=== PATIENT | male | born 1940 | race Caucasian/White ===

== ENCOUNTER 2016-12-31 05:05 | Day surgery (SDC) | payer MEDICARE, BC ==
[2016-12-30 09:57] LABS: HEMOGLOBIN 14.6 g/dL (13.5-17.5); MCH 30.2 pg (26.0-34.0); MEAN PLATELET VOLUME 11.5 fL (7.4-10.4); RBC 4.83 10x6/uL (4.20-6.10); WBC 7.6 10x3/uL (4.8-10.8)
[2016-12-30 10:16] LABS: ANION GAP 12.9 mmol/L (8-16); CALCIUM 9.8 mg/dL (8.5-10.1); CARBON DIOXIDE 28.6 mmol/L (21.0-32.0); CREATININE - SERUM 1.2 mg/dL (0.6-1.3); POTASSIUM - SERUM 4.5 mmol/L (3.5-5.1)
[~2016-12-31] VITALS: Ht 175.3 cm; Wt 89.8 kg
[~2016-12-31 05:05] MED LIST: ASPIRIN EC81 M1 PO; CRESTOR20 MG PO; GLUCOPHAGE1000 MG PO; LANTUS INSULIN10 ML SC
[2016-12-31 05:51] VITALS: BP 111/55; Ht 175.3 cm; Wt 89.8 kg
[2016-12-31] MEDS ORDERED: HYDROCODONE-APA1 TAB PO (08:57)
--- NOTE | 2016-12-31 09:35 | NUR ---
IV DC WITH CATHER TIP INTACT
--- NOTE | 2016-12-31 10:06 | NUR ---
0911 STILL C/O PAIN , PAIN LEVEL AT AT 8
--- NOTE | 2017-01-21 12:18 | OP ---
PATIENT NAME: MADDY MARTINEZ MEDICAL RECORD: [id number] :42 LOCATION:D.OPS ADMISSION DATE: SURGEON: ELIZABETH FAITH MD DATE OF OPERATION: 12/31/2016 PREOPERATIVE DIAGNOSES: 1. Right carpal tunnel syndrome. 2. Right cubital tunnel syndrome. POSTOPERATIVE DIAGNOSES: 1. Right carpal tunnel syndrome. 2. Right cubital tunnel syndrome. PROCEDURES PERFORMED: 1. Right carpal tunnel release. 2. Right ulnar nerve transposition. SURGEON: Alfredo Faith MD. ANESTHESIA: General. CONDITION: He tolerated procedure well and was transferred to the recovery room in stable condition at termination of procedure. INDICATIONS: This is a pleasant 76-year-old gentleman with significant numbness and tingling in the ulnar and median nerve distributions. He has had confirmation of this. We discussed options and elected to proceed with a release of the nerves. We discussed risks, benefits, and alternatives. He understood and wished to proceed. OPERATIVE REPORT: The patient was taken to the operating room, placed in a supine position. General anesthesia was obtained. His right arm was prepped and draped in a normal fashion. Once this was accomplished, I then proceeded to identify or make an incision on his medial elbow. This was taken down. I identified the ulnar nerve and then followed it from proximal to distal. It should be noted it was very tightly compressed as it passed behind the elbow. I was able to release this and transposed it anteriorly. I did not do a significant amount of transposition. I just moved it out of the screw, released up the soft tissues, but it was not so adherent. This was followed from proximal down through the foramen approach. Once this was accomplished, I then moved to the hand, made a small incision in his mid palmar area and took this down. I identified the transverse carpal ligament. I placed the hemostat down below the ligament and made a transection of the ligament down onto the hemostat. With this having been accomplished, I then verified that the nerve was intact. I copiously irrigated the elbow. Following which, each incision was closed with a hand with 3-0 Prolene interrupted sutures. The elbow with 2-0 Vicryl, then 3-0 Prolene running in half inch Steri-Strips. I then placed him in a posterior splint. He was at this juncture awakened and transferred to recovery in stable condition, having tolerated the procedure well. Moving his fingers, I have discussed with him that the carpal tunnel tends to respond much quicker than the cubital tunnel. We will proceed from this juncture. TRANSINT:[id number] Voice Confirmation ID: [id number] DOCUMENT ID: [id number] OPERATIVE REPORT [id number] MADDY MARTINEZ, ELIZABETH NICE MD at 1218 CC: [id number] DICTATION DATE: 12/31/16 1043 SHAKE LOADER: 12/31/16 1112 [facility] 12/31/16 [address] [place] [address]
== END 2016-12-31 10:03 | disposition home or self-care (01) ==
LOC: D.OPS 05:05 → D.PAN 07:00 → D.OPS 07:00 → D.PAN 09:15 → D.OPS 10:03
PROVIDERS: Anesthesiology
DX: G56.01 Carpal tunnel syndrome, right upper limb (principal); G56.21 Lesion of ulnar nerve, right upper limb

== ENCOUNTER 2017-03-18 11:44 | Outpatient (CLI) | payer MEDICARE, BC ==
[~2017-03-18] VITALS: Ht 175.3 cm; Wt 86.4 kg
--- NOTE | ~2017-03-18 | HEMODYNAMI ---
PATIENT:MADDY MARTINEZ MEDICAL RECORD: [id number] : 42 LOCATION:D.CAT ADMISSION DATE: 03/18/17 Generatedon:03/18/201715:37 Patient name: MADDY MARTINEZ Patient #: [id number] SSN: : 1940 Date of study: 03/18/2017 Page: Of Hemodynamic Procedure Report Patient Data Patient Demographics Procedure consent was obtained First Name: MADDY Gender: Male Last Name: JUAN : 1940 Middle Initial: F Age: 76 year(s) Patient #: [id number] Race: Unknown Additional ID: [id number] Contact details [address]: [address] [place] [address] State: [place] City: [place] Zip code: [address] Admission Admission Data Admission Date: 03/18/2017 Admission Time: 11:44 Procedure Procedure Types Cath Procedure Diagnostic Procedure PPM/ICD Permanent Pacer Generator Exg. Miscellaneous Procedures Moderate Sedation up to 30 minutes Procedure Description Procedure Date Procedure Date: 03/18/2017 Procedure Start Time: 15:11 Procedure Staff Name Function Chan Rangel MD Performing Physician Michele Osman MD Assisting physician Sepideh Mcgovern RN Nurse Phillip Pleitez RT Monitor Damian John RT Scrub Procedure Data Cath Procedure Fluoroscopy Diagnostic fluoroscopy Total fluoroscopy Time: 0 time: 0 min min Diagnostic fluoroscopy Total fluoroscopy dose: 0 dose: 0 mGy mGy Contrast Material Contrast Material Type Amount (ml) Isovue 300 0 Estimated blood loss: 10 ml Procedure Complications No complications Procedure Medications Medication Administration Route Dosage Ancef (1Gm/50ml NS) I.V.P.B 1 g Lidocaine 1% with added to field 20 ml Epi Bupivacaine 0.5% added to field 10 ml Ancef Irrigation added to field 1 g (1gm/500ml NS) Versed I.V. 1 mg Fentanyl I.V. 50 mcg Fentanyl I.V. 25 mcg Hemodynamics Rest Pre Cath Intra NCS Post Cath Vital Signs Time Heart Resp SPO2 NIBP (mmHg) Rhythm Pain Sedation Rate (ipm) (%) Status Level (bpm) 15:04:28 67 17 98 157/71(118) NSR 0 (11) 10(A) , No pain 15:09:04 67 14 97 150/67(117) NSR 0 (11) 10(A) , No pain 15:13:37 62 16 98 155/72(123) NSR 0 (11) 10(A) , No pain 15:18:09 69 16 95 143/67(105) NSR 0 (11) 10(A) , No pain 15:22:40 70 16 96 134/59(97) Paced 0 (11) 10(A) , No pain 15:27:04 78 16 96 139/64(107) Paced 0 (11) 10(A) , No pain 15:31:22 81 16 96 125/62(98) Paced 0 (11) 10(A) , No pain 15:35:46 80 14 96 140/59(95) Paced 0 (11) 10(A) , No pain Medications Time Medication Route Dose Verified Delivered Reason Notes Effectiv eness by by 15:00:07 Ancef I.V.P.B 1 g Congregational Sepideh Per (1Gm/50ml Dawson Mcgovern RN physician NS) 15:03:15 Lidocaine added 20 ml Congregational Congregational used for 1% with Epi to Dawson Osman MD procedure field 15:03:25 Bupivacaine added 10 ml Congregational Congregational used for 0.5% to Dawson Osman MD procedure field 15:03:47 Ancef added 1 g Congregational Congregational Per Irrigation to Dawson Osman MD physician (1gm/500ml field NS) 15:10:39 Versed I.V. 1 mg Congregational Sepideh for Dawson Mcgovern RN sedation 15:10:49 Fentanyl I.V. 50 Congregational Sepideh for rita Mcgovern RN sedation 15:16:26 Fentanyl I.V. 25 Congregational Sepideh for rita Mcgovern RN sedation Procedure Log Time Note 14:40:31 Damian John RT(R) sent for patient. Start room use. 14:43:33 Time tracking: Regular hours 14:43:37 Plan of Care:Hemodynamics will remain stable., Cardiac rhythm will remain stable., Comfort level will be maintained., Respiratory function will remain adequate., Patient/ family verbilizes understanding of procedure., Procedure tolerated without complication., Recovers from procedure without complications.. 14:45:44 Use device set Pacemaker Set 14:46:00 Medtronic asset protection representative Patric Mccullough present for procedure. 14:55:17 Patient received from Pre/Post Procedure Room to [facility] 3 Alert and oriented. Tansferred to table in Supine position. 14:55:18 Warm blankets applied, and jose hugger turned on for patient comfort. 14:55:19 Correct patient and procedure confirmed by team. 14:55:20 Signed procedure consent form obtained from patient. 14:55:20 ECG and BP/O2 sat monitors applied to patient. 15:00:07 Ancef (1Gm/50ml NS) 1 g I.V.P.B was administered by Sepideh Mcgovern RN; Per physician; 15:02:54 Vital chart was started 15:03:15 Lidocaine 1% with Epi 20 ml added to field was administered by Michele Osman MD; used for procedure; 15:03:25 Bupivacaine 0.5% 10 ml added to field was administered by Michele Osman MD; used for procedure; 15:03:47 Ancef Irrigation (1gm/500ml NS) 1 g added to field was administered by Michele Osman MD; Per physician; 15:05:39 Rhythm: sinus rhythm 15:05:40 Full Disclosure recording started 15:05:49 H&P Date Dictated: 02/24/2017 Within 30 days and on chart., H&P Addendum completed by physician on day of procedure. (MUST COMPLETE FOR ALL OUTPATIENTS). 15:05:50 Pre-procedure instructions explained to patient. 15:05:50 Pre-op teaching completed and patient verbalized understanding. 15:05:51 Family in waiting room. 15:05:52 Patient NPO since Midnight. 15:05:54 Is the patient allergic to Iodine/contrast media? No. 15:05:56 Is patient on blood thinner?No 15:05:58 Patient diabetic? No. 15:06:19 Previous problem with sedation/anesthesia? No occasional nausea 15:06:21 Snore? No 15:06:22 Sleep apnea? No 15:06:23 Deviated septum? No 15:06:24 Opens mouth fully? Yes 15:06:24 Sticks out tongue? Yes 15:06:26 Airway obstruction? No ? 15:06:28 Dentures? Yes IN 15:06:32 Patient pain scale 0/10 ?. 15:06:41 IV patent on arrival in left forearm with 0.9% NaCl at [facility]. 15:06:43 Lab results completed and on chart. 15:06:49 Left chest area was prepped with chlora-prep and draped in sterile fashion 15:06:50 Alarms reviewed by R. N. 15:06:51 Sharps counted by scrub and verified by R.N. 15:06:52 --------ALL STOP TIME OUT------ 15:06:52 Final Timeout: patient, procedure, and site verified with staff and physician. All members of the team are in agreement. 15:06:55 Left chest site verified by team. 15:07:01 Physical assessment completed. ASA score P 2 - A patient with mild systemic disease as per Michele Osman MD. 15:07:04 Sedation plan: IV Moderate Sedation Versed, Fentanyl 15:09:09 Pre sharps counted by scrub and verified by RN: Sutures: 14 Sponges: 5 Stick needles: 0 Skin needles: 2 Blade: 1 Cautery: 1 15:09:13 Grounding pad site Left thigh. 15:09:24 Grounding pad site free from injury. 15:09:27 Mepilex Dressing opened to sterile field. 15:09:28 2.0 Ticron Multipack opened to sterile field. 15:09:28 3.0 Vicryl Multipack [id number] opened to sterile field. 15:09:30 5.0 Monocryl PS2 [id number] opened to sterile field. 15:09:37 Medtronic Adapta PPM Dual Generator opened to sterile field. 15:10:39 Versed 1 mg I.V. was administered by Sepideh Mcgovern RN; for sedation; 15:10:49 Fentanyl 50 mcg I.V. was administered by Sepideh Mcgovern RN; for sedation; 15:11:59 Procedure started. 15:12:05 Lidocaine 1% w/epi and Bupivacaine 0.5% to left subclavicular area by Michele Osman MD. 15:14:30 Incision made to left subclavicular area. 15:14:54 Device pocket was reopened. 15:16:24 PPM Dual was removed.. 15:16:26 Fentanyl 25 mcg I.V. was administered by Sepideh Mcgovern RN; for sedation; 15:20:00 Ventricular lead tested. 15:20:03 Atrial lead tested. 15:20:10 PPM Dual was attached to lead(s) and inserted into pocket. 15:20:13 Device pocket was irrigated with Ancef. 15:21:19 Generator was sutured in place with 2-0 ticron. 15::45 Subcutaneous closure was completed with 3-0 vicryl. 15:24:01 Skin closure was completed with 5-0 monocryl. 15::54 Lt Chest incision was dressed with 4 x 4 and Tegaderm. 15:29:41 Procedure ended.(Physican Out) 15:29:43 Fluoroscopy time 00.00 minutes. 15::44 Fluoroscopy dose: 0 mGy 15::44 Flurop Dose total: 0 15:29:46 Contrast amount:Isovue 300 0ml. 15:29:47 Sharps counted by scrub and verified by R.N. 15:30:23 Post sharps counted by scrub and verified by RN: Sutures: 15 Sponges: 5 Stick needles: 0 Skin needles: 2 Blade: 1 Cautery: 1 15:30:37 Insertion/operative site no bleeding no hematoma. 15:30:44 Post-procedure physical assessment completed. ASA score P 2 - A patient with mild systemic disease as per Michele Osman MD. 15:30:48 Post procedure rhythm: paced 15:30:51 Estimated blood loss: 10 ml 15:30:54 Post procedure instruction explained to patient.Patient verbalizes understanding. 15:30:55 Patient needs reinforcement of post procedure teaching. 15:31:08 Procedure type changed to Cath procedure, Diagnostic procedure, PPM/ICD, Permanent Pacer Generator Exg., Miscellaneous Procedures, Moderate Sedation up to 30 minutes 15:31:35 Procedure Complication : No complications 15:35:12 Parameters-- Generator: Mode: DEMAND. Lower Rate: 60bpm. Upper Rate: 130bpm. 15:36:05 Parameter reading in patient's chart. 15:37:03 Vital chart was stopped Device Usage Item Name Manufacture Quantity Catalog Hospital Part Current Minimal Lo t# / Number Charge Number Stock Stock Serial# Code Mepilex [place] 1 [id number] 5 Dressing Health 2.0 Ethicon 1 [id number] [id number] 5 Ticron Multipack 3.0 Ethicon 1 [id number] [id number] 5 Vicryl Multipack [id number] 5.0 Ethicon 1 [id number] 958031 [id number] 002744 5 Monocryl PS2 Y495G Medtronic Medtronic 1 [id number] 5 [id number] Adapta EX P PPM Dual Generator Signature Audit [place] Stage Time Signature Unsigned Intra-Procedure 03/18/2017 Phillip Pleitez 3:37:00 PM RT(R) Signatures Monitor : Phillip Pleitez RT Signature : Date : Time : [id number] [place] [address]
[~2017-03-18 11:44] MED LIST changes: +HYDROCODONE-APA1 TAB PO
[2017-03-18 12:11] VITALS: BP 146/59; Ht 175.3 cm; Wt 86.4 kg
[2017-03-18 12:54] LABS: HEMATOCRIT 38.4 % (42.0-54.0); MCH 30.5 pg (26.0-34.0); MCHC 33.9 g/dL (31.0-37.0); MCV 90.1 fL (80.0-100.0); MEAN PLATELET VOLUME 11.4 fL (7.4-10.4); PLATELET COUNT 86 10x3/uL (130-400); RBC 4.26 10x6/uL (4.20-6.10); RDW 13.3 % (11.5-14.5); WBC 5.8 10x3/uL (4.8-10.8)
[2017-03-18 13:09] LABS: APTT 29.7 SECONDS (22.8-39.4); CALC OSMOLALITY 284 mosm/kg (275-300); CALCIUM 8.9 mg/dL (8.5-10.1); CARBON DIOXIDE 25.1 mmol/L (21.0-32.0); CHLORIDE - SERUM 107 mmol/L (98-107); CREATININE - SERUM 0.9 mg/dL (0.6-1.3); GLUCOSE 116 mg/dL (74-106); INR 1.06 (0.85-1.17); POTASSIUM - SERUM 4.4 mmol/L (3.5-5.1); PROTIME 13.7 SECONDS (11.6-15.0); SODIUM 142 mmol/L (136-145); UREA NITROGEN 16 mg/dL (7-18); eGFR NON AFRICAN AMERICAN 87 mL/min (90-120)
[2017-03-18 13:15] LABS: PLATELET ESTIMATE DECREASED
--- NOTE | 2017-03-18 18:35 | NUR ---
1600-EATING SANDWICH, NO DISTRESS NOTED, AT SIDE, IV PATENT. VSS
--- NOTE | 2017-03-18 18:44 | NUR ---
1650-IV D'C WITH CATH TIP INTACT, WRITTEN AND VERBAL INSTRUCTIONS GIVEN TO PT AND , VERBAL UNDERSTANDING NOTED, D'C HOME
--- NOTE | 2017-03-25 14:52 | OP ---
PATIENT NAME: MADDY MARTINEZ MEDICAL RECORD: [id number] :41 LOCATION:D.CAT ADMISSION DATE: SURGEON: MIGUEL GARCIA MD DATE OF OPERATION: 03/18/2017 PREOPERATIVE DIAGNOSES: 1. End-of-life generator. 2. Coronary artery disease. POSTOPERATIVE DIAGNOSES: 1. End-of-life generator. 2. Coronary artery disease. PROCEDURE: Left subclavian vein pacemaker generator exchange. SURGEON: Miguel Garcia MD. REPORT OF PROCEDURE: The patient's left chest was prepped and draped in sterile fashion. A total of 20 mL of 1% lidocaine with epinephrine was infused into the surrounding tissues. A skin incision was made overlying the pacemaker and we dissected down to the pacemaker using electrocautery. The pacemaker was eviscerated through the wound and the suture holding it in place was cut. The pacemaker was detached and a new Medtronic pacemaker was inserted. This was placed in to the subcutaneous pouch and sutured down with an 0 Tycron. The subcutaneous tissues were then irrigated out and then reapproximated with interrupted 3-0 Vicryls. The skin was closed with running subcutaneous 5-0 Monocryl and dressed appropriately. COMPLICATIONS: None. CONDITION: Stable. ANESTHESIA: Local MAC. BLOOD LOSS: Minimal. TRANSINT:[id number] Voice Confirmation ID: [id number] DOCUMENT ID: [id number] MIGUEL GARCIA MD at 1452 CC: NYASIA VICTOR MD [id number] DICTATION DATE: 03/18/17 1533 VENEER JOINTER RETURNER: 03/18/17 2140 DEP CLI 03/18/17 [id number] [place] [address]
== END 2017-03-18 17:00 | disposition home or self-care (01) ==
LOC: D.CATH 11:44
PROVIDERS: Internal Medicine Interventional Cardiology
DX: Z45.010 Encounter for checking and testing of cardiac pacemaker pulse generator [battery] (principal); I25.10 Atherosclerotic heart disease of native coronary artery without angina pectoris

== ENCOUNTER 2017-07-28 10:13 | Emergency (ER) | payer MEDICARE, BC ==
[2017-03-18 12:11] VITALS: BMI 28.1
== END 2017-07-28 12:21 | disposition home or self-care (01) ==
LOC: D.ER 10:13
DX: S39.012A Strain of muscle, fascia and tendon of lower back, initial encounter (principal); W11.XXXA Fall on and from ladder, initial encounter; Y93.89 Activity, other specified; Y92.019 Unspecified place in single-family (private) house as the place of occurrence of the external cause; S79.911A Unspecified injury of right hip, initial encounter; I10 Essential (primary) hypertension; E11.9 Type 2 diabetes mellitus without complications; Z79.4 Long term (current) use of insulin; Z95.0 Presence of cardiac pacemaker

== ENCOUNTER → 2017-08-05 08:51 | Outpatient (CLI) | payer MEDICARE, BC ==
[2017-03-18 12:11] VITALS: BMI 28.1
[~2017-08-05 08:51] MED LIST changes: +COLACE100 MG PO; +MIRALAX17 GM PO
== END | disposition home or self-care (01) ==
LOC: D.MRI 08:51
DX: M48.56XA Collapsed vertebra, not elsewhere classified, lumbar region, initial encounter for fracture (principal)

== ENCOUNTER 2017-08-05 10:24 | Observation (INO) | payer MEDICARE, BC ==
[~2017-08-05] VITALS: Ht 172.7 cm; Wt 84.1 kg
[~2017-08-05 10:24] MED LIST changes: -COLACE100 MG PO; -MIRALAX17 GM PO
[2017-08-05 11:50] LABS: BASOPHILS 0.3 % (0-2); EOSINOPHILS 2.3 % (0-7); HEMATOCRIT 42.1 % (42.0-54.0); HEMOGLOBIN 14.4 g/dL (13.5-17.5); IMMATURE GRANULOCYTES 0.2 % (0-5); LYMPHOCYTES 26.8 % (15-50); MCH 30.4 pg (26.0-34.0); MCHC 34.2 g/dL (31.0-37.0); MCV 88.8 fL (80.0-100.0); MEAN PLATELET VOLUME 10.7 fL (7.4-10.4); MONOCYTES 5.5 % (2-11); NEUTROPHILS 64.9 % (40-80); PLATELET COUNT 88 10x3/uL (130-400); RBC 4.74 10x6/uL (4.20-6.10)
[2017-08-05 11:56] LABS: APPEARANCE CLEAR (CLEAR); BILIRUBIN NEGATIVE (NEGATIVE); COLOR YELLOW (YELLOW); GLUCOSE NEGATIVE (NEGATIVE); KETONE NEGATIVE (NEGATIVE); LEUKOCYTE ESTERASE NEGATIVE (NEGATIVE); NITRITE NEGATIVE (NEGATIVE); PROTEIN NEGATIVE (NEGATIVE); UROBILINOGEN NORMAL (NORMAL)
[2017-08-05 12:11] LABS: PLATELET ESTIMATE DECREASED
[2017-08-05 12:23] LABS: ALBUMIN 4.1 g/dL (3.4-5.0); ALKALINE PHOSPHATASE 93 U/L (46-116); ALT (SGPT) 18 U/L (10-68); BILIRUBIN - TOTAL 0.36 mg/dL (0.2-1.3); CALC OSMOLALITY 285 mosm/kg (275-300); CALCIUM 9.2 mg/dL (8.5-10.1); CARBON DIOXIDE 26.9 mmol/L (21.0-32.0); CHLORIDE - SERUM 103 mmol/L (98-107); POTASSIUM - SERUM 4.9 mmol/L (3.5-5.1); PROTEIN - SERUM 7.9 g/dL (6.4-8.2); SODIUM 139 mmol/L (136-145); UREA NITROGEN 18 mg/dL (7-18); eGFR NON AFRICAN AMERICAN 77 mL/min (90-120)
[2017-08-05 12:24] LABS: GLUCOSE 198 mg/dL (74-106)
[2017-08-05 18:09] VITALS: BMI 28.1
[2017-08-05 19:00] VITALS: BP 129/55
--- NOTE | 2017-08-05 21:04 | NUR ---
ONE AND HALF BAG OF SSE GIVEN WITH NO RESULT, CALLED DR ORTIZ NEW ORDERS GIVEN , REPORT GIVEN TO RICA Nguyen
--- NOTE | 2017-08-05 21:25 | NUR ---
REC FROM OP VIA WC. ALERT/ORIENTED X 4. AMBULATED TO BED WITH STEADY GAIT. IV IN RT WRIST INTACT SL. DENIES ANY NEEDS. NPO PER ORDER. ORIENTED TO ROOM AND CALL LIGHT.
--- NOTE | 2017-08-05 22:25 | NUR ---
STARTED NS AT 70ML/HR TO RT WRIST. CHECKED BS AT 163. DID NOT ADMIN INSULIN DUE TO BEING NPO. REQUESTED TEMP TURNED UP, DOOR CLOSED AND LIGHTS OUT TO SLEEP. REQUESTED TO HOLD ENEMA'S FOR A FEW HOURS TO SLEEP.
[2017-08-06] VITALS: BP 105/62
[2017-08-06 02:55] VITALS: BP 129/55; Ht 172.7 cm; Wt 84.1 kg
--- NOTE | 2017-08-06 04:43 | NUR ---
FINISHED GIVING 2 BAGS OF TAP WATER ENEMA'S. HAD LARGE AMOUNTS OF PUDDING CONSISTANCY STOOLS. ABD IS STILL DISTENDED AND FIRM.
[2017-08-06 07:27] LABS: BASOPHILS 0.1 % (0-2); EOSINOPHILS 1.8 % (0-7); HEMATOCRIT 39.1 % (42.0-54.0); HEMOGLOBIN 13.4 g/dL (13.5-17.5); IMMATURE GRANULOCYTES 0.1 % (0-5); LYMPHOCYTES 21.3 % (15-50); MCH 30.1 pg (26.0-34.0); MCHC 34.3 g/dL (31.0-37.0); MCV 87.9 fL (80.0-100.0); MEAN PLATELET VOLUME 10.5 fL (7.4-10.4); MONOCYTES 6.8 % (2-11); NEUTROPHILS 69.9 % (40-80); PLATELET COUNT 98 10x3/uL (130-400); RBC 4.45 10x6/uL (4.20-6.10)
[2017-08-06 07:28] LABS: WBC 7.6 10x3/uL (4.8-10.8)
[2017-08-06 07:51] LABS: ALBUMIN 3.6 g/dL (3.4-5.0); ALKALINE PHOSPHATASE 90 U/L (46-116); ALT (SGPT) 20 U/L (10-68); BILIRUBIN - TOTAL 0.54 mg/dL (0.2-1.3); CALC OSMOLALITY 281 mosm/kg (275-300); CALCIUM 8.4 mg/dL (8.5-10.1); CARBON DIOXIDE 28.1 mmol/L (21.0-32.0); CHLORIDE - SERUM 104 mmol/L (98-107); CREATININE - SERUM 0.9 mg/dL (0.6-1.3); POTASSIUM - SERUM 4.3 mmol/L (3.5-5.1); PROTEIN - SERUM 6.9 g/dL (6.4-8.2); SODIUM 139 mmol/L (136-145); UREA NITROGEN 15 mg/dL (7-18); eGFR NON AFRICAN AMERICAN 87 mL/min (90-120)
[2017-08-06 08:00] LABS: GLUCOSE 149 mg/dL (74-106)
--- NOTE | 2017-08-06 08:00 | NUR ---
PT UP AD LETTY AND DENIES WANTING ANY SCDS IN PLACE.
--- NOTE | 2017-08-06 08:04 | NUR ---
AM ROUNDS COMPLETED. PT A&O LYING BACK IN BED RESTING QUIETLY WITH FAMILY AT BEDSIDE. SHIFT ASSESSMENT COMPLETED. PT HAS A R.WRIST PIV WITH NS @75ML/HR IN PLACE. PT DENIES ANY CURRENT PAIN OR NEEDS. CL IN REACH, BED IN LOWEST, SIDE RAILS X2. WILL CPOC.
[2017-08-06 08:42] VITALS: BP 128/65
[2017-08-06] MEDS ORDERED: MIRALAX17 GM PO (12:36)
[2017-08-06] MEDS ORDERED: COLACE100 MG PO (12:37)
--- NOTE | 2017-08-06 12:58 | NUR ---
D/C PTS R.WRIST PIV WITH CATH TIP FULLY INTACT. PT BEING DISCHARGED TODAY. PT GETTING IN SHOWER NOW AND THEN AWAITING DISCHARGE PAPERS.
--- NOTE | 2017-08-06 14:01 | NUR ---
DISCHARGE TEACHING PROVIDED AND PAPERS SIGNED. AT BEDSIDE FOR TRANSPORTATION. PT DENIES ANY NEEDS. WILL NOW LEAVE FOR HOME.
== END 2017-08-06 14:02 | disposition home or self-care (01) ==
LOC: D.ER 10:24 → D.OPS 10:24 → EDSTATUS 15:30 → D.M2 21:17 → OBSVTIME 21:18 → D.M2 21:18 → D.OPS 21:18 → D.M2 21:38 → D.OPS 21:38 → D.M2 08-06 14:02
PROVIDERS: Emergency Medicine; ADMIT Family Medicine Adult Medicine
DX: K59.03 Drug induced constipation (principal); T40.605A Adverse effect of unspecified narcotics, initial encounter; Z95.0 Presence of cardiac pacemaker; I25.10 Atherosclerotic heart disease of native coronary artery without angina pectoris; Z95.1 Presence of aortocoronary bypass graft; K21.9 Gastro-esophageal reflux disease without esophagitis

== ENCOUNTER → 2020-08-28 15:37 | Outpatient (CLI) | payer MEDICARE, BC ==
[2017-08-06 02:55] VITALS: BMI 28.1
[~2020-08-28 15:37] MED LIST changes: +COLACE100 MG PO; +MIRALAX17 GM PO
== END | disposition home or self-care (01) ==
LOC: D.CT 15:00
PROVIDERS: ATTEND Family Medicine
DX: R10.9 Unspecified abdominal pain (principal)